=== PATIENT | female | born 1950 | race Caucasian/White ===

== ENCOUNTER → 2021-04-06 13:02 | Outpatient (CLI) | payer MEDICARE, SELFPAY ==
--- NOTE | ~2021-04-06 | DEXA_ITS ---
Bone Density Report Name: Alex Vogel Age: 70 Sex: Female Ethnicity: White Date of : 1950 Indication: postmenopausal; screening for osteoporosis; height loss; hysterectomy; Referring Provider: SHAHZAD DIAZ Study: Bone densitometry was performed. Exam Date: April 06, 2021 Accession number: [id number] Bone Density: Region BMD T-score Z-score Classification AP Spine (L1, L2) 1.182 1.8 4.0 Normal Femoral Neck (Left) 0.589 -2.3 -0.4 Osteopenia Total Hip (Left) 0.774 -1.4 0.3 Osteopenia Femoral Neck (Right) 0.667 -1.6 0.3 Osteopenia Total Hip (Right) 0.783 -1.3 0.3 Osteopenia Total Hip Mean 0.779 -1.4 0.3 Osteopenia World Health Organization criteria for BMD impression classify patients as: Normal (T-score at or above -1.0), Osteopenia (T-score between -1.0 and -2.5), or Osteoporosis (T-score at or below -2.5). 10-year Fracture Risk(1): Major Osteoporotic Fracture 13% Hip Fracture 3.2% Reported Risk Factors: [place] (), Neck BMD=0.589, BMI=30.2 (1) FRAX(R) Version 3.08. Fracture probability calculated for an untreated patient. Fracture probability may be lower if the patient has received treatment. Previous Exams: Region Exam Age BMD T-score BMD Change BMD Change Date g/cm2 vs Baseline vs Previous AP Spine(L1, L2) 04/06/2021 70 1.182 1.8 0.223* 0.165* 05/14/2018 67 1.017 0.3 0.058* 0.058* 02/06/2016 65 0.959 -0.2 Total Hip(Left) 04/06/2021 70 0.774 -1.4 -0.041* -0.056* 05/14/2018 67 0.830 -0.9 0.015 0.015 02/06/2016 65 0.815 -1.0 Total Hip(Right) 04/06/2021 70 0.783 -1.3 -0.067* -0.060* 05/14/2018 67 0.843 -0.8 -0.006 -0.006 02/06/2016 65 0.849 -0.8 *Denotes significance at 95% confidence level, LSC for AP Spine = 0.022 g/cm2, LSC for Total Hip = 0.027 g/cm2 Clinical Information Provided by Patient: Has used the following medications: Vitamin D Has the following medical conditions: Hysterectomy Patient maximum height was 62.0 Menopause Age: 41 No regular weight bearing exercise Drinks caffeinated beverages Onset of menses at age 8 Number of children 2 Impression: The patient has low bone mass, based on the Left Femoral Neck T-score. The patient has an estimated ten-year risk of hip fracture of 3.2% and an estimated ten-year risk of major fracture of 13%, bas
--- NOTE | ~2021-04-06 | MM_ITS ---
EXAMINATION: MM screening [facility] w laura HISTORY: Screening TECHNIQUE: Craniocaudal and mediolateral oblique 3-D tomosynthesis images were obtained and synthetic 2-D images were generated. CAD analysis was submitted and interpreted. COMPARISON: Comparison to multiple prior studies sequentially, with oldest reviewed study dated 02/05. BREAST PARENCHYMAL COMPOSITION: There are scattered areas of fibroglandular density. FINDINGS: There is no evidence of suspicious mass, calcification, or architectural distortion to sugg est malignancy in either breast. There has been no suspicious interval change. IMPRESSION: 1. No mammographic evidence of malignancy. 2. Recommend routine screening mammography in one year. BI-RADS Category 1: Negative Reviewed, dictated and finalized at location A.
== END ==
PROVIDERS: PCP Emergency Medicine; Visit Provider Emergency Medicine
DX: Z12.31 Encounter for screening mammogram for malignant neoplasm of breast (principal); Z78.0 Asymptomatic menopausal state; M85.851 Other specified disorders of bone density and structure, right thigh; M85.852 Other specified disorders of bone density and structure, left thigh
CPT/HCPCS: 77063; 77067; 77080

== ENCOUNTER → 2023-03-28 14:35 | Outpatient (CLI) | payer MEDICARE, SELFPAY ==
--- NOTE | ~2023-03-28 | CT_ITS ---
EXAMINATION: CT abdomen pelvis wo con DATE: 03/28/2023 14:50 INDICATION: Calculus of the kidney TECHNIQUE: Computed tomography (CT) of the abdomen and pelvis was performed without intravenous contr ast. The dose-length product (DLP) was 420.99 mGy-cm. Automated exposure control and iterative recons truction technique were employed. COMPARISON: None FINDINGS: Minimal dependent atelectasis is present in the lung bases. The heart size is normal. There is a 4 mm nodule of the right lower lobe, likely benign. The liver, spleen, pancreas, gallbladder, a nd adrenal glands are normal. The kidneys are unremarkable. No stones are identified in the kidneys, ureters, or bladder. No hydronephrosis or hydroureter. No pathologically enlarged abdominal or pelvic lymph nodes are identified. No free intraperitoneal gas or evidence of bowel obstruction. There is s evere lumbar spondylosis. Colonic diverticulosis is present without evidence of diverticulitis. There is an umbilical hernia containing fat. IMPRESSION: 1. No CT correlate for the patient's symptoms. Reviewed, dictated and finalized at location B.
== END ==
PROVIDERS: PCP Emergency Medicine; Visit Provider Emergency Medicine
DX: N20.0 Calculus of kidney (principal)
CPT/HCPCS: 74176

== ENCOUNTER → 2023-06-18 13:29 | Outpatient (CLI) | payer MEDICARE, SELFPAY ==
--- NOTE | ~2023-06-18 | MM_ITS ---
EXAMINATION: MM screening [facility] BI w laura HISTORY: Screening mammogram TECHNIQUE: Craniocaudal and mediolateral oblique 3-D tomosynthesis images were obtained and synthetic 2-D images were generated. CAD analysis was submitted and interpreted. COMPARISON: 04/06/2021, 05/14/2018, 02/20/2016 BREAST PARENCHYMAL COMPOSITION: There are scattered areas of fibroglandular density. FINDINGS: No suspicious mass, calcification, or architectural distortion are identified in either luisito ast to suggest malignancy. There has been no suspicious interval change. IMPRESSION: 1. No mammographic evidence of malignancy. 2. Recommend routine screening mammography in one year. BI-RADS Category 1: Negative Reviewed, dictated and finalized at location A.
== END ==
PROVIDERS: PCP Emergency Medicine; Visit Provider Emergency Medicine
DX: Z12.31 Encounter for screening mammogram for malignant neoplasm of breast (principal)
CPT/HCPCS: 77063; 77067

== ENCOUNTER 2025-02-04 10:58 | Outpatient (CLI) | payer MEDICARE, SELFPAY ==
--- NOTE | ~2025-02-04 | DEXA_ITS ---
Bone Density Report Name: EDUIN SILVA Age: 74 Sex: Female Ethnicity: White Date of : 1950 Indication: osteopenia; monitoring treatment; height loss; hysterectomy; rheumatoid arthritis; Referring Provider: SHAHZAD DIAZ Study: Bone densitometry was performed. Exam Date: February 04, 2025 Accession number: [id number] Bone Density: Region BMD T-score Z-score Classification AP Spine(L1, L2) 1.458 4.4 6.7 Normal Femoral Neck (Left) 0.584 -2.4 -0.3 Osteopenia Total Hip (Left) 0.786 -1.3 0.6 Osteopenia Femoral Neck (Right) 0.638 -1.9 0.2 Osteopenia Total Hip (Right) 0.799 -1.2 0.7 Osteopenia Total Hip Mean 0.792 -1.3 0.7 Osteopenia World Health Organization criteria for BMD impression classify patients as: Normal (T-score at or above -1.0), Osteopenia (T-score between -1.0 and -2.5), or Osteoporosis (T-score at or below -2.5). 10-year Fracture Risk(1): Major Osteoporotic Fracture 20% Hip Fracture 6.5% Reported Risk Factors: [place] (), Neck BMD=0.584, BMI=30.2, rheumatoid arthritis (1) FRAX(R) Version 3.08. Fracture probability calculated for an untreated patient. Fracture probability may be lower if the patient has received treatment. Previous Exams: -- Region Exam Age BMD T-score BMD Change BMD Change Date g/cm2 vs Baseline vs Previous -- AP Spine (L1-L2) 02/04/2025 74 1.458 4.4 52.0%* 23.3%* 04/06/2021 70 1.182 1.8 23.3%* 16.2%* 05/14/2018 67 1.017 0.3 6.1%* 6.1%* 02/06/2016 65 0.959 -0.2 Total Hip(Left) 02/04/2025 74 0.786 -1.3 -3.6%* 1.5% 04/06/2021 70 0.774 -1.4 -5.0%* -6.8%* 05/14/2018 67 0.830 -0.9 1.9% 1.9% 02/06/2016 65 0.815 -1.0 Total Hip(Right) 02/04/2025 74 0.799 -1.2 -5.9%* 2.1% 04/06/2021 70 0.783 -1.3 -7.9%* -7.1%* 05/14/2018 67 0.843 -0.8 -0.8% -0.8% 02/06/2016 65 0.849 -0.8 -- *Denotes significance at 95% confidence level, LSC for AP Spine = 0.022 g/cm2, LSC for Total Hip = 0.027 g/cm2 Rate of change results reflect vertebral levels common to all scans Clinical Information Provided by Patient: Has rheumatoid arthritis Is being treated for osteoporosis Has used the following medications: Fosamax (i.e. alendronate), Vitamin D Has the following medical conditions: Hysterectomy Patient maximum height was 62 Menopause Age: 41 Drinks caffeinated beverages Onset of menses at age 8 Number of children 2 Impression: The patient has low bone mass, based on the Left Femoral Neck T-score. The patient has an estimated ten-year risk of hip fracture of 6.5% and an estimated ten-year risk of major fracture of 20%, based on the WHO FRAX algorithm. No significant bone loss was observed. Discussion: PATIENT UNDER TREATMENT WITH NO SIGNIFICANT BMD LOSS SINCE LAST EXAM. In an untreated patient, BMD typically declines with age. A lack of decline or gain is usually a sign that treatment is efficacious and fracture risk is reduced. It is important to ask patients whether they are taking their medications and to encourage continued and appropriate compliance with their osteoporosis therapies to reduce fracture risk. It is also important to review their risk factors and encourage appropriate calcium and vitamin D intakes, exercise, fall prevention and other lifestyle measures. Follow-Up: Consider a repeat BMD and Vertebral Fracture Assessment (VFA) exam in 2 years or sooner if medically necessary, to reassess this patient's status. Reported by: VERO on 02/04/2025 11:15:00 AM. Reviewed, dictated and finalized at location A.
== END 2025-02-04 10:59 | disposition home or self-care (01) ==
PROVIDERS: PCP Emergency Medicine; Visit Provider Emergency Medicine
DX: M85.89 Other specified disorders of bone density and structure, multiple sites (principal); Z78.0 Asymptomatic menopausal state
CPT/HCPCS: 77080

== ENCOUNTER 2025-06-29 11:28 | Outpatient (CLI) | payer MEDICARE, SELFPAY ==
--- NOTE | ~2025-06-29 | XR_ITS ---
EXAMINATION: XR shoulder RT min 2V, 06/29/2025 12:00 CDT HISTORY: SUPERIOR RT SHOULDER PAIN COMPARISON: No comparisons available. Findings: No acute fracture or malalignment. Severe degenerative changes Soft tissues unremarkable. Impression: No acute fracture or malalignment. Reviewed, dictated and finalized at location P. Impression: No acute fracture or malalignment.
--- NOTE | ~2025-06-29 | XR_ITS ---
EXAMINATION: XR shoulder LT min 2V, 06/29/2025 12:00 CDT HISTORY: SUPERIOR LT SHOULDER PAIN COMPARISON: No comparisons available. Findings: No acute fracture or malalignment. Severe degenerative changes Soft tissues unremarkable. Impression: No acute fracture or malalignment. Reviewed, dictated and finalized at location P. Impression: No acute fracture or malalignment.
== END 2025-06-29 11:29 | disposition home or self-care (01) ==
LOC: MICIMG 11:29
PROVIDERS: PCP Emergency Medicine; Visit Provider Emergency Medicine
DX: M19.012 Primary osteoarthritis, left shoulder (principal); M19.011 Primary osteoarthritis, right shoulder
CPT/HCPCS: 73030

== ENCOUNTER 2025-08-01 14:19 | Outpatient (CLI) | payer MEDICARE, SELFPAY ==
--- NOTE | ~2025-08-01 | MR_ITS ---
EXAMINATION: MR shoulder RT wo con DATE: 08/01/2025 15:07 INDICATION: Right shoulder pain TECHNIQUE: Magnetic resonance imaging (MRI) of the right shoulder was performed without intravenous contrast. Sequences included axial PD-weighted FS FSE, coronal oblique PD-weighted FS FSE, coronal oblique T2-weighted FS FSE, sagittal PD-weighted FS FSE, and sagittal T1-weighted SE. COMPARISON: None. FINDINGS: Coracoacromial arch: The acromion undersurface is curved in morphology (type II). Small lateral subacromial spur. Additional moderate sized anterior subacromial spur at the acromial insertion of the otherwise normal. Coracoacromial ligament. Moderate acromioclavicular osteoarthritis. Rotator cuff: Moderate supraspinatus and infraspinatus tendinopathy with full-thickness tear extending across the entire superior middle facet footplates of both tendons. The medial tear margin retracted 4 cm medially to the level of the acromioclavicular joint line. The teres minor tendon is normal. Moderate subsca pularis tendinopathy without discrete tear. Mild supraspinatus atrophy with concave cephalad margin to the muscle belly 12 the supraspinatus fossa. There is mild to moderate fatty atrophy of the infraspinatus muscle. Biceps tendon, glenoid labrum and glenohumeral cartilage: Long head biceps tendon is not identified suggesting complete tear and distal retraction. There is degenerative tearing of the superior to posterior glenoid labrum. Deep chondral ulceration along the central to posterior glenoid labrum with subarticular cystlike change along the 9:00 position of the posterior rim of the glenoid. Additional nonuniform partial-thickness cartilage loss along the humeral head most prominent at the superior medial aspect of the humeral head where it involves greater than 50% the cartilage thickness but without degenerative subchondral changes. Fluid: Small to moderate-sized glenohumeral joint effusion extending through the large full-thickness rotator cuff tear defect to indicate with small amount of fluid in the subacromial/subdeltoid bursa. No loose osteochondral bodies. Bones: Mild superior subluxation of the humeral head with respect to the glenoid secondary to the large full-thickness rotator cuff tear. No fracture or pathologic marrow replacing process. Mild hypertrophic change along the greater tuberosity more prominent hypertrophic changes along the lesser tuberosity co nsistent with sequela of chronic rotator cuff disease. IMPRESSION: 1. Large full-thickness tear along the mesenteric greater tuberosity footplate of the supraspinatus and infraspinatus tendons which be chronic given the mild to moderate fatty atrophy of the infraspinatus muscle belly. 2. Moderate glenohumeral osteoarthritis with degenerative tearing of the superior to posterior glenoid labrum. 3. Full-thickness tear and distal retraction of the long head biceps tendon. 4. Moderate acromioclavicular osteoarthritis. Reviewed, dictated and finalized at location A. SCHOOL SCIENCE TUTOR IMPRESSION: 1. Large full-thickness tear along the mesenteric greater tuberosity footplate of the supraspinatus and infraspinatus tendons which be chronic given the mild to moderate fatty atrophy of the infraspinatus muscle belly. 2. Moderate glenohumeral osteoarthritis with degenerative tearing of the superi or to posterior glenoid labrum. 3. Full-thickness tear and distal retraction of the long head biceps tendon. 4. Moderate acromioclavicular osteoarthritis.
--- NOTE | ~2025-08-01 | MR_ITS ---
EXAMINATION: MR shoulder LT wo con DATE: 08/01/2025 15:29 INDICATION: Right shoulder pain TECHNIQUE: Magnetic resonance imaging (MRI) of the right shoulder was performed without intravenous contrast. Sequences included axial PD-weighted FS FSE, coronal oblique PD-weighted FS FSE, coronal oblique T2-weighted FS FSE, sagittal PD-weighted FS FSE, and sagittal T1-weighted SE. COMPARISON: None. FINDINGS: Coracoacromial arch: The acromion undersurface is curved in morphology (type II). The coracoacromial ligament is normal. Moderate acromioclavicular osteoarthritis. Rotator cuff: Moderate supraspinatus and infraspinatus tendinopathy without discrete tear. Mild subscapularis tendinopathy without discrete tear. The teres minor tendon is normal. Normal rotator cuff muscle bulk and signal. Biceps tendon, glenoid labrum and glenohumeral cartilage: Mild tendinopathy without tear of the long head biceps tendon. Severe glenohumeral osteoarthritis with extensive full and near full-thickness cartilage loss along the glenoid with remodeling along the posterior glenoid. Subarticular cystlike change at the cephalad aspect of the glenoid and along the inferior rim. Degenerative tearing of the superior, posterior and inferior glenoid labrum. Additional less severe partial thickness cartilage loss along the humeral head most prominent superomedially where it also involves greater than 50% the cartilage thickness. Large marginal osteophytes along the inf eromedial aspect of the humeral head. Fluid: Small glenohumeral joint effusion with proportional extension of fluid along the long head biceps tendon sheath. No loose osteochondral bodies. Mild increased fluid signal in the subacromial/subdeltoid bursa consistent with minimal bursitis. Bones: No fracture or pathologic marrow replacing process. Cystic and hypertrophic changes along the greater tuberosity consistent with sequela of chronic rotator cuff disease. IMPRESSION: 1. Severe left glenohumeral osteoarthritis with degenerative tearing of the glenoid labrum. 2. Mild subscapularis and moderate supraspinatus and infraspinatus tendinopathy without rotator cuff tear. 3. Moderate acromioclavicular osteoarthritis. 4. Mild tendinopathy without tear of the long head biceps tendon. Reviewed, dictated and finalized at location A. K CARRIER IMPRESSION: 1. Severe left glenohumeral osteoarthritis with degenerative tearing of the gle noid labrum. 2. Mild subscapularis and moderate supraspinatus and infraspinatus tendinopathy without rotator cuff tear. 3. Moderate acromioclavicular osteoarthritis. 4. Mild tendinopathy without tear of the long head biceps tendon.
== END 2025-08-01 14:20 | disposition home or self-care (01) ==
LOC: MICIMG 14:20
PROVIDERS: PCP Emergency Medicine; Visit Provider Emergency Medicine
DX: M75.121 Complete rotator cuff tear or rupture of right shoulder, not specified as traumatic (principal); M19.011 Primary osteoarthritis, right shoulder; S43.431A Superior glenoid labrum lesion of right shoulder, initial encounter; S46.111A Strain of muscle, fascia and tendon of long head of biceps, right arm, initial encounter; M19.012 Primary osteoarthritis, left shoulder; S43.432A Superior glenoid labrum lesion of left shoulder, initial encounter; M75.22 Bicipital tendinitis, left shoulder; X58.XXXA Exposure to other specified factors, initial encounter
CPT/HCPCS: 73221

== ENCOUNTER 2025-08-31 13:27 | Outpatient (CLI) | payer MEDICARE, SELFPAY ==
--- NOTE | ~2025-08-31 | CT_ITS ---
EXAM/PROCEDURE: [email or web address] HISTORY: Preoperative planning COMPARISON: None available. TECHNIQUE: [facility] preoperative planning right shoulder CT. FINDINGS: Severe osteoarthritic degenerative changes in the right shoulder including glenohumeral joint and AC joint. Degenerative changes also present throughout the thoracic spine. Small effusion may be present. IMPRESSION: Preoperative planning [facility] protocol right shoulder CT examination demonstrating severe degenerative changes in the right shoulder. Advanced degenerative changes also seen in the visualized portions of the thoracic spine. Reviewed, dictated and finalized at location A. ER PRODUCTION MACHINE OPERATOR IMPRESSION: Preoperative planning [facility] protocol right shoulder CT examination demonstrat ing severe degenerative changes in the right shoulder. Advanced degenerative ch anges also seen in the visualized portions of the thoracic spine.
--- NOTE | 2025-08-31 13:46 | ECG_ITS ---
Test Date: 2025-08-31 14:07:32 Measurements Intervals [place] Rate: 59 P: 21 WV: 140 QRS: -16 QRSD: 94 T: 42 QT: 405 QTc: 403 Interpretive Statements SINUS BRADYCARDIA BASELINE ARTIFACT- I, II, III, AVR BORDERLINE ECG No previous ECG available for comparison Electronically Signed On 08-31-2025 14:28:43 PULLMAN CLERK by Ronnie Mendoza D.O.
--- OUTSIDE RECORDS SUMMARY | 2025-08-31 16:04 | XMS_ITS | Clinical Summary ---
Author Organization [facility] Address [address] [place] [id number] Care Team Providers Care Safety Belt Installer Name Role Phone Unavailable Primary Care Provider Unavailabl e Social History Tobacco Use Types Packs/Day Years Used Date Smoking Tobacco: Never Assessed Comments Unknown Sex and Gender Information Value Date Recorded Sex Assigned at Not on file Legal Sex Female 8:08 PM CDT Gender Identity Not on file Sexual Orientation Not on file Last Filed Vital Signs Vital Sign Reading Time Taken Comments Blood Pressure 172/98 06/18/2013 8:06 AM CDT Pulse 66 06/18/2013 8:06 AM CDT Temperature - - Respiratory Rate - - Oxygen Saturation - - Inhaled Oxygen Concentration - - Weight 78 kg (172 lb) 05/19/2013 10:57 AM CDT Height 157.5 cm (5' 2) 05/19/2013 10:57 AM CDT Body Mass Index 31.46 05/19/2013 10:57 AM CDT Plan of Treatment Health Maintenance Due Date Last Done Comments Hepatitis C 1966 DTaP, Tdap and Td Vaccines ( 1 - Tdap) 11/14/1967 Pneumococcal Vaccine: 50+ Ye ars (1 of 1 - PCV) 1998 Zoster Vaccines (1 of 2) 1998 Dexa Scan (General) 2013 RSV Immunization or 60+ Years (1 - 1-dose 75+ series) 11/14/2023 COVID-19 Vaccine ( - 2024-2 6 season) 2025 Influenza Adult (#1) 2025 Hepatitis A Vaccines Aged Out No long er eligible based on patient's age to complete this topic Meningococcal B Vaccine Aged Out No l onger eligible based on patient's age to complete this topic Meningococcal Vaccine Aged Out No luz maria donna eligible based on patient's age to complete this topic RSV Immunizations Under 20 Months Aged Out No longer eligible based on patient's age to complete this topic
== END 2025-08-31 13:28 | disposition home or self-care (01) ==
LOC: ANHIMG 13:32
PROVIDERS: PCP Emergency Medicine; Visit Provider Orthopaedic Surgery
DX: Z01.818 Encounter for other preprocedural examination (principal); M19.011 Primary osteoarthritis, right shoulder; I10 Essential (primary) hypertension
CPT/HCPCS: 73200; 93005